=== PATIENT | female | born 1985 | race African-American/Black ===

== ENCOUNTER 2016-07-27 09:11 | Emergency (ER) | payer OTHER ==
[2016-07-27] MEDS ORDERED: Ibuprofen 600 MG TAB ONE (09:46)
[2016-07-27 10:09] LABS: #Lymphocytes 1.6 thou/uL (1.20-3.40); #Monocytes 0.4 thou/uL (0.11-0.59); #Neutrophils 4.4 thou/uL (1.40-6.50); %Basophils 0.7 % (0.0-1.0); %Eosinophils 0.3 % (0.0-10.0); %Lymphocytes 24.9 % (21.0-51.0); %Monocytes 6.5 % (0.0-10.0); %Neutrophils 67.7 % (42.0-75.0); Mean Corpuscular HGB CONC 32.3 g/dL (32.0-36.0); Mean Corpuscular Hemoglobin 29.7 pg (27.0-31.0); Mean Platelet Volume 7.9 fL (7.4-10.4); Platelet Count 259 thou/uL (130-400); RBC Distribution Width 13.3 % (11.5-14.5); White Blood Cell (WBC) Count 6.5 thou/uL (4.8-10.8)
[2016-07-27 10:27] LABS: ALT (SGPT) 8 U/L (0-55); AST (SGOT) 11 U/L (5-34); Albumin 4.1 g/dL (3.5-5.0); Alkaline Phosphatase 54 U/L (40-150); Anion Gap 12 mmol/L (10-20); BUN (Urea Nitrogen) 5 mg/dL (7.0-18.7); Bilirubin, Total 0.4 mg/dL (0.2-1.2); Calc. Creatinine Clearance 0 mL/min (70-130); Calcium 9.4 mg/dL (7.8-10.44); Carbon Dioxide 24 mmol/L (22-29); Chloride 107 mmol/L (98-107); Estimated GFR-MDRD Greater than 90; Globulin 2.7 g/dL (2.4-3.5); Glucose 89 mg/dL (70-105); Lipase 12 U/L (8-78); Potassium 4.4 mmol/L (3.5-5.1); Protein, Total 6.8 g/dL (6.0-8.3); Sodium 139 mmol/L (136-145)
[2016-07-27 10:30] LABS: CKMB 0.7 ng/mL (0-6.6); Troponin I Less than 0.010 ng/mL (< 0.028)
--- NOTE | 2016-07-27 10:42 | RAD ---
UPRIGHT PORTABLE CHEST 1 VIEW: HISTORY: A 31-year-old female with chest pain. COMPARISON: 12/15/15. FINDINGS: Heart size is normal. The lungs are clear. IMPRESSION: No acute intrathoracic disease. Stable from prior study. POS: [facility]
== END 2016-07-27 11:27 | disposition home or self-care (01) ==
LOC: MADERS 09:11
DX: R07.89 Other chest pain (principal)
CPT/HCPCS: 36415; 71010; 80053; 82553; 83690; 83880; 84484; 85025; 85379; 93005

== ENCOUNTER 2017-02-09 03:06 | Emergency (ER) | payer BC, OTHER ==
[2017-02-09] MEDS ORDERED: Mag-Al Plus 1200 MG/1200 MG/120 MG/30 ML UDCUP ONE (03:42)
[2017-02-09] MEDS ORDERED: Donnatal Elixir 16.2 MG/5 ML UDCUP ONE ×2 (03:42→06:46)
[2017-02-09] MEDS ORDERED: Lidocaine Viscous Sol 2% 15 ml UD Cup ONE (03:42)
[2017-02-09] MEDS ORDERED: Lorazepam 2 MG/ML VIAL ONE (03:44)
[2017-02-09] MEDS ORDERED: Aspirin 325 MG TAB ONE (03:44)
[2017-02-09] MEDS ORDERED: Ondansetron HCl/PF 4 MG/2 ML Vial ONE (03:45)
[2017-02-09] MEDS ORDERED: Ketorolac Tromethamine 30 MG/ML VIAL ONE (03:45)
[2017-02-09 04:30] LABS: #Basophils 0.1 thou/uL (0.0-0.2); #Lymphocytes 1.5 thou/uL (1.20-3.40); #Monocytes 0.5 thou/uL (0.11-0.59); #Neutrophils 4.2 thou/uL (1.40-6.50); %Eosinophils 0.4 % (0.0-10.0); %Lymphocytes 23.4 % (21.0-51.0); %Monocytes 8.1 % (0.0-10.0); %Neutrophils 67.1 % (42.0-75.0); Hemoglobin 12.1 g/dL (12.0-16.0); Mean Corpuscular HGB CONC 32.8 g/dL (32.0-36.0); Mean Corpuscular Hemoglobin 29.5 pg (27.0-31.0); Mean Corpuscular Volume 89.8 fl (81.0-99.0); Mean Platelet Volume 8.2 fL (7.4-10.4); Platelet Count 234 thou/uL (130-400); RBC Distribution Width 13.3 % (11.5-14.5); Red Blood Cell (RBC) Count 4.12 mill/uL (4.20-5.40); White Blood Cell (WBC) Count 6.3 thou/uL (4.8-10.8)
[2017-02-09 04:40] LABS: INR-International Normal Ratio 0.9; Prothrombin Time 12.5 SEC (12.0-14.7)
[2017-02-09 04:49] LABS: ALT (SGPT) 7 U/L (8-55); AST (SGOT) 13 U/L (5-34); Acetaminophen Less than 6.0 mcg/mL (10.0-30.0); Albumin 4.4 g/dL (3.5-5.0); Alcohol Less than 10 mg/dL (Less than 10); Alkaline Phosphatase 56 U/L (40-150); Anion Gap 15 mmol/L (10-20); BUN (Urea Nitrogen) 5 mg/dL (7.0-18.7); Bilirubin, Total 0.6 mg/dL (0.2-1.2); CK (CPK) 81 U/L (29-168); Calc. Creatinine Clearance 0 mL/min (70-130); Calcium 9.6 mg/dL (7.8-10.44); Carbon Dioxide 22 mmol/L (22-29); Chloride 108 mmol/L (98-107); Estimated GFR-MDRD Greater than 90; Globulin 3.4 g/dL (2.4-3.5); Glucose 90 mg/dL (70-105); Magnesium 2.3 mg/dL (1.6-2.6); PTT 25.8 SEC (22.9-36.1); Potassium 3.4 mmol/L (3.5-5.1); Protein, Total 7.8 g/dL (6.0-8.3); Salicylate Less than 8.0 mg/dL (15.0-30.0); Sodium 142 mmol/L (136-145)
[2017-02-09 04:56] LABS: CKMB 0.8 ng/mL (0-6.6); Troponin I Less than 0.010 ng/mL (< 0.028)
[2017-02-09 05:17] LABS: Amphetamine Not Detected (NotDetected); Barbiturates Screen Not Detected (NotDetected); Benzodiazepine Screen Not Detected (NotDetected); Cocaine Metabolite Screen Not Detected (NotDetected); Medtox Control Line Valid? VALID (VALID); Methadone Not Detected (NotDetected); Methamphetamine Not Detected (NotDetected); Opiate Screen Not Detected (NotDetected); Oxycodone Screen Not Detected (NotDetected); Phencyclidine (PCP) Not Detected (NotDetected); THC/Cannabinoid Screen Not Detected (NotDetected); Tricyclic Screen Not Detected (NotDetected)
--- NOTE | 2017-02-09 08:04 | RAD ---
CHEST ONE VIEW: HISTORY: Chest pain. Dyspnea. COMPARISON: 07/27/2016 FINDINGS: The cardiac silhouette is magnified by projection. The pulmonary vasculature is unremarkable. The mediastinum is midline. There is no confluent air space consolidation or evidence of pneumothorax. IMPRESSION: No active cardiopulmonary abnormalities are demonstrated.. POS: [facility]
== END 2017-02-09 06:07 | disposition home or self-care (01) ==
LOC: MADERS 03:06
DX: R07.89 Other chest pain (principal)
CPT/HCPCS: 71010; 80053; 80306; 80307; 82553; 83735; 83880; 84443; 84484; 85025; 85610; 85730; 87086; 93005; 94760; 96374; 96375; J1885; J2060; J2405

== ENCOUNTER 2017-04-11 00:40 | Emergency (ER) | payer BC ==
[2017-04-11] MEDS ORDERED: Ketorolac Tromethamine 30 MG/ML VIAL ONE ×2 (01:16→02:28)
[2017-04-11 02:21] LABS: #Basophils 0.1 thou/uL (0.0-0.2); #Monocytes 0.5 thou/uL (0.11-0.59); #Neutrophils 5.3 thou/uL (1.40-6.50); %Eosinophils 0.6 % (0.0-10.0); %Lymphocytes 25.7 % (21.0-51.0); %Neutrophils 66.7 % (42.0-75.0); Hemoglobin 12.6 g/dL (12.0-16.0); Mean Corpuscular HGB CONC 32.9 g/dL (32.0-36.0); Mean Corpuscular Hemoglobin 29.8 pg (27.0-31.0); Mean Corpuscular Volume 90.4 fl (81.0-99.0); Mean Platelet Volume 8.7 fL (7.4-10.4); Platelet Count 266 thou/uL (130-400); RBC Distribution Width 12.4 % (11.5-14.5); Red Blood Cell (RBC) Count 4.22 mill/uL (4.20-5.40); White Blood Cell (WBC) Count 7.9 thou/uL (4.8-10.8)
[2017-04-11 02:41] LABS: CKMB 1.3 ng/mL (0-6.6); Troponin I Less than 0.010 ng/mL (< 0.028)
[2017-04-11 02:42] LABS: ALT (SGPT) Less than 7 U/L (8-55); AST (SGOT) 14 U/L (5-34); Albumin 4.6 g/dL (3.5-5.0); Alkaline Phosphatase 59 U/L (40-150); Anion Gap 14 mmol/L (10-20); BUN (Urea Nitrogen) 8 mg/dL (7.0-18.7); Bilirubin, Total 0.2 mg/dL (0.2-1.2); Calc. Creatinine Clearance 0 mL/min (70-130); Calcium 9.6 mg/dL (7.8-10.44); Carbon Dioxide 21 mmol/L (22-29); Chloride 107 mmol/L (98-107); Estimated GFR-MDRD Greater than 90; Globulin 3.4 g/dL (2.4-3.5); Glucose 104 mg/dL (70-105); Lipase 23 U/L (8-78); Potassium 4.1 mmol/L (3.5-5.1); Sodium 138 mmol/L (136-145)
--- NOTE | 2017-04-11 08:13 | RAD ---
PA AND LATERAL VIEWS CHEST: HISTORY: Left-sided chest pain. FINDINGS: Comparison is made with the exam of 12/14/14. The heart size is normal. The lungs are expanded without focal areas of consolidation, pneumothorax, or pleural effusions. The bony structures are unremarkable. IMPRESSION: Normal exam. POS: [facility]
== END 2017-04-11 03:15 | disposition home or self-care (01) ==
LOC: MADERS 00:40
DX: K22.4 Dyskinesia of esophagus (principal); R07.89 Other chest pain
CPT/HCPCS: 36415; 71046; 80053; 82553; 83690; 84484; 85025; 93005; 96372; J1885

== ENCOUNTER 2017-10-02 10:24 | Emergency (ER) | payer BC ==
--- NOTE | 2017-10-02 11:21 | RAD ---
FOUR VIEWS LEFT ELBOW: Date: 10-02-17 History: Twisting motion to left elbow and shoulder. Limited range of motion. FINDINGS: There is no evidence of a fracture, dislocation, or other osseous abnormality involving the left elbo w. IMPRESSION: No acute osseous abnormality. POS: [facility]
--- NOTE | 2017-10-02 11:22 | RAD ---
THREE VIEWS LEFT SHOULDER: Date: 10-02-17 History: Limited range of motion. Twisting motion at left shoulder. FINDINGS: There is no evidence of fracture, dislocation, or other osseous abnormality involving the left should er. IMPRESSION: No acute osseous abnormality. POS: [facility]
[2017-10-02] MEDS ORDERED: Ketorolac Tromethamine 30 MG/ML VIAL ONE (11:45)
== END 2017-10-02 12:00 | disposition home or self-care (01) ==
LOC: MADERS 10:24
DX: S43.402A Unspecified sprain of left shoulder joint, initial encounter (principal); W22.8XXA Striking against or struck by other objects, initial encounter
CPT/HCPCS: 96372; J1885

== ENCOUNTER 2018-09-11 15:19 | Outpatient (CLI) | payer BC ==
--- NOTE | 2018-09-11 15:47 | RAD ---
Exam:3 views left shoulder HISTORY: Pain. Limited range of motion. Pain worsening the last 3 months. COMPARISON: 10/02/2017 FINDINGS: Glenohumeral joint space preserved. Acromioclavicular cortical clavicular distance is maint ained. No fracture or dislocation. IMPRESSION: Unremarkable 3 views left shoulder
== END 2018-09-11 15:20 | disposition home or self-care (01) ==
LOC: MADRAD 15:19
PROVIDERS: ATTEND Family Medicine
DX: M25.512 Pain in left shoulder (principal); G89.29 Other chronic pain

== ENCOUNTER 2019-06-07 10:16 | Emergency (ER) | payer BC ==
[2019-06-07] MEDS ORDERED: Prochlorperazine Maleate 5 MG TAB ONE (10:58)
[2019-06-07] MEDS ORDERED: Sodium Chloride 0.9% 1,000 ML ONE (10:58)
[2019-06-07 11:18] LABS: ALT (SGPT) 10 U/L (8-55); AST (SGOT) 13 U/L (5-34); Albumin 4.3 g/dL (3.5-5.0); Alkaline Phosphatase 62 U/L (40-110); Anion Gap 15 mmol/L (10-20); BUN (Urea Nitrogen) 13 mg/dL (7.0-18.7); Bilirubin, Total 0.3 mg/dL (0.2-1.2); Calc. Creatinine Clearance 0 mL/min (70-130); Calcium 9.7 mg/dL (7.8-10.44); Carbon Dioxide 26 mmol/L (22-29); Chloride 107 mmol/L (98-107); Estimated GFR-MDRD 86; Globulin 3.6 g/dL (2.4-3.5); Glucose 95 mg/dL (70-105); Potassium 3.3 mmol/L (3.5-5.1); Protein, Total 7.9 g/dL (6.0-8.3); Sodium 145 mmol/L (136-145)
[2019-06-07 11:20] LABS: Band 2 % (5-11); Hemoglobin 11.8 g/dL (12.0-16.0); Lymphocytes 10 % (21-51); MDiff Complete? YES; Mean Corpuscular Hemoglobin 27.6 pg (27.0-31.0); Mean Corpuscular Volume 88.9 fL (78.0-98.0); Mean Platelet Volume 8.6 fL (7.4-10.4); Monocytes 3 % (0-10); Neutrophil 84 % (42-75); Platelet Count 351 thou/uL (130-400); Platelet Morphology Comment Appears Adequate; RBC Distribution Width 12.6 % (11.5-14.5); Reactive Lymphocytes 1 % (0-10); Red Blood Cell (RBC) Count 4.28 mill/uL (4.20-5.40); White Blood Cell (WBC) Count 10.2 thou/uL (4.8-10.8)
== END 2019-06-07 11:45 | disposition home or self-care (01) ==
LOC: MADERS 10:16
DX: R42 Dizziness and giddiness (principal); R10.816 Epigastric abdominal tenderness
CPT/HCPCS: 36415; 80053; 85025; 96360; J7050; Q0164

== ENCOUNTER 2019-10-02 15:55 | Outpatient (CLI) | payer BC ==
--- NOTE | 2019-10-02 16:20 | RAD ---
EXAM: Chest PA and lateral: HISTORY: Exposure to COVID 19. COMPARISON: 04/11/2017 FINDINGS: Heart: Normal cardiac silhouette Aorta: Unremarkable Pulmonary vessels: Normal Costophrenic angles: Costophrenic angles are clear. Lungs: No consolidation or masses. Pneumothorax: No pneumothorax Osseous structures: No osseous abnormalities IMPRESSION: No acute cardiopulmonary process.
== END 2019-10-02 15:56 | disposition home or self-care (01) ==
LOC: MADRAD 15:55
PROVIDERS: ATTEND Family Medicine
DX: R06.00 Dyspnea, unspecified (principal); Z20.828 Contact with and (suspected) exposure to other viral communicable diseases
CPT/HCPCS: 71046; 87633

== ENCOUNTER 2021-10-14 18:05 | Emergency (ER) | payer BC ==
[2021-10-14 19:08] LABS: Hemoglobin 13.4 g/dL (12.0-16.0); Mean Corpuscular HGB CONC 32.4 g/dL (32.0-36.0); Mean Corpuscular Volume 86.4 fL (78.0-98.0); Mean Platelet Volume 10.3 fL (7.4-10.4); Platelet Count 300 thou/uL (130-400); RBC Distribution Width 12.7 % (11.5-14.5); White Blood Cell (WBC) Count 8.4 thou/uL (4.8-10.8)
[2021-10-14 19:15] LABS: Lymphocytes 19 % (21-51); Monocytes 4 % (0-10); Neutrophil 76 % (42-75); Platelet Morphology Comment Appears Adequate
[2021-10-14 19:17] LABS: MDiff Complete? YES; Manual Diff?? YES
[2021-10-14 19:21] LABS: ALT (SGPT) 13 U/L (8-55); AST (SGOT) 18 U/L (5-34); Albumin 4.7 g/dL (3.5-5.0); Alkaline Phosphatase 77 U/L (40-110); Anion Gap 17 mmol/L (10-20); BUN (Urea Nitrogen) 6 mg/dL (7.0-18.7); Bilirubin, Total 0.5 mg/dL (0.2-1.2); Calc. Creatinine Clearance 0 mL/min (70-130); Calcium 9.7 mg/dL (7.8-10.44); Carbon Dioxide 21 mmol/L (22-29); Chloride 108 mmol/L (98-107); Estimated GFR 97; Globulin 3.5 g/dL (2.4-3.5); Glucose 89 mg/dL (70-105); Lipase 19 U/L (8-78); Potassium 4.2 mmol/L (3.5-5.1); Protein, Total 8.2 g/dL (6.0-8.3); Sodium 142 mmol/L (136-145)
[2021-10-14] MEDS ORDERED: Sodium Chloride 0.9% 1,000 ML ONE (19:25)
[2021-10-14] MEDS ORDERED: Naproxen 500 MG TAB ONE (19:25)
[2021-10-14 20:25] LABS: Bilirubin Negative (Negative); Blood, Urine Negative (Negative); Clarity Clear (Clear); Glucose, Urine (Dipstick) Negative (Negative); Ketone, Urine Trace mg/dL (Negative); Leukocyte Negative (Negative); Nitrite Negative (Negative); Protein, Urine (Dipstick) Negative (Neg-Trace); Urobilinogen 0.2 mg/dL (Less than 2)
== END 2021-10-14 21:34 | disposition home or self-care (01) ==
LOC: MADERS 18:05
DX: R07.89 Other chest pain (principal); E86.9 Volume depletion, unspecified; R42 Dizziness and giddiness; R29.700 NIHSS score 0; I10 Essential (primary) hypertension
CPT/HCPCS: 71045; 80053; 81003; 83690; 84443; 84484; 85025; 96360; 96361; J7050

== ENCOUNTER 2022-06-06 09:08 | Outpatient (CLI) | payer BC | END 2022-06-06 09:09 | disposition home or self-care (01) | LOC: MADRAD 09:08 | PROVIDERS: ATTEND Family Medicine | DX: J20.9 Acute bronchitis, unspecified (principal) | CPT/HCPCS: 71046 ==

== ENCOUNTER 2023-02-18 10:40 | Outpatient (CLI) | payer BC | END 2023-02-18 10:41 | disposition home or self-care (01) | LOC: MADLAB 10:40 → MADRAD 10:41 | PROVIDERS: ATTEND Family Medicine | DX: M25.552 Pain in left hip (principal) ==

== ENCOUNTER 2023-03-29 20:10 | Emergency (ER) | payer BC ==
[2023-03-29] MEDS ORDERED: Aspirin 325 MG TAB ONE (20:26)
[2023-03-29 20:44] LABS: Hematocrit 39.1 % (36.0-47.0); Hemoglobin 12.7 g/dL (12.0-16.0); Mean Corpuscular HGB CONC 32.6 g/dL (32.0-36.0); Mean Corpuscular Hemoglobin 30.3 pg (27.0-31.0); Mean Corpuscular Volume 92.9 fl (78.0-98.0); Mean Platelet Volume 9.9 fL (7.4-10.4); Platelet Count 225 10x3/uL (130-400); RBC Distribution Width 12.4 % (11.5-14.5); Red Blood Cell (RBC) Count 4.21 mill/uL (4.20-5.40); White Blood Cell (WBC) Count 8.4 10x3/uL (4.8-10.8)
[2023-03-29 20:45] LABS: Lymphocytes 22 % (21-51); MDiff Complete? YES; Monocytes 6 % (0-10); Neutrophil 72 % (42-75)
[2023-03-29 20:49] LABS: PTT 25.5 sec (22.9-36.1)
[2023-03-29 20:53] LABS: BHCG - Serum Negative (NEGATIVE); Pregs Control Background? CLEAR/WHITE (CLR/WHITE); Pregs Control Bar Appear? YES (CONTROL BAR)
[2023-03-29 20:57] LABS: Anion Gap 14 mmol/L (10-20); BUN (Urea Nitrogen) 6 mg/dL (7.0-18.7); Calc. Creatinine Clearance 0 mL/min (70-130); Calcium 10.4 mg/dL (7.8-10.44); Carbon Dioxide 25 mmol/L (22-29); Chloride 105 mmol/L (98-107); Estimated GFR 96; Glucose 99 mg/dL (70-105); Potassium 3.7 mmol/L (3.5-5.1); Sodium 140 mmol/L (136-145)
[2023-03-29 20:59] LABS: Troponin I Less than 0.010 ng/mL (< 0.028)
== END 2023-03-29 21:13 | disposition home or self-care (01) ==
LOC: MADERS 20:10
DX: M94.0 Chondrocostal junction syndrome [Tietze] (principal); I49.9 Cardiac arrhythmia, unspecified; I10 Essential (primary) hypertension; Z79.899 Other long term (current) drug therapy
CPT/HCPCS: 36415; 71045; 80048; 83735; 83880; 84443; 84484; 84703; 85025; 85610; 85730; 93005

== ENCOUNTER 2023-08-25 09:49 | Emergency (ER) | payer BC ==
[2023-08-25 10:12] LABS: Bilirubin Small (Negative); Blood, Urine Trace (Negative); Glucose, Urine (Dipstick) Negative (Negative); Ketone, Urine 15 mg/dL (Negative); Leukocyte Negative (Negative); Nitrite Negative (Negative); Protein, Urine (Dipstick) 30 mg/dL (Neg-Trace); pH, Urine 5.5 (5.0-9.0)
[2023-08-25 10:18] LABS: Clarity Hazy (Clear); Specific Gravity, Urine 1.031 (1.002-1.036)
[2023-08-25 10:20] LABS: Bacteria/HPF 1+ HPF (None Seen); CAUTI Indications for Culture Dysuria,urgency,freq; Mucous/LPF 3+ LPF (<2+); RBC/HPF 0-3 HPF (0-3); WBC/HPF None Seen HPF (0-3)
[2023-08-25 10:21] LABS: Urine Culture Reflex No No
[2023-08-25] MEDS ORDERED: Ondansetron PF 4 MG/2 ML Vial ONE (10:48)
[2023-08-25] MEDS ORDERED: Sodium Chloride 0.9% 1,000 ML ONE (10:48)
[2023-08-25 11:10] LABS: Hematocrit 47.9 % (36.0-47.0); Lymphocytes 20 % (21-51); MDiff Complete? YES; Manual Diff?? YES; Mean Corpuscular HGB CONC 29.3 g/dL (32.0-36.0); Mean Corpuscular Volume 95.3 fl (78.0-98.0); Mean Platelet Volume 8.6 fL (7.4-10.4); Monocytes 3 % (0-10); Neutrophil 69 % (42-75); Platelet Count 251 10x3/uL (130-400); RBC Distribution Width 12.5 % (11.5-14.5); RBC Morph Comment Within Normal Limits; Reactive Lymphocytes 8 % (0-10); Red Blood Cell (RBC) Count 5.02 mill/uL (4.20-5.40); White Blood Cell (WBC) Count 5.1 10x3/uL (4.8-10.8)
[2023-08-25 11:11] LABS: Platelet Adequacy Comment Appears Adequate
[2023-08-25 11:20] LABS: ALT (SGPT) 13 U/L (8-55); AST (SGOT) 15 U/L (5-34); Albumin 4.7 g/dL (3.5-5.0); Alkaline Phosphatase 51 U/L (40-110); Anion Gap 16 mmol/L (10-20); BUN (Urea Nitrogen) 8 mg/dL (7.0-18.7); Bilirubin, Total 0.6 mg/dL (0.2-1.2); Calc. Creatinine Clearance 0 mL/min (70-130); Calcium 10.2 mg/dL (7.8-10.44); Carbon Dioxide 22 mmol/L (22-29); Chloride 109 mmol/L (98-107); Estimated GFR 95; Globulin 3.1 g/dL (2.4-3.5); Glucose 92 mg/dL (70-105); Magnesium 2.2 mg/dL (1.6-2.6); Potassium 3.6 mmol/L (3.5-5.1); Protein, Total 7.8 g/dL (6.0-8.3); Sodium 143 mmol/L (136-145)
== END 2023-08-25 11:39 | disposition home or self-care (01) ==
LOC: MADERS 09:49
DX: K52.9 Noninfective gastroenteritis and colitis, unspecified (principal); E86.0 Dehydration; I10 Essential (primary) hypertension
CPT/HCPCS: 80053; 81001; 83735; 85025; 96361; 96374; J2405; J7050

== ENCOUNTER 2024-04-17 15:10 | Emergency (ER) | payer BC ==
[2024-04-17] MEDS ORDERED: Ketorolac Tromethamine 30 MG (1 mL) VIAL ONE (15:27)
[2024-04-17] MEDS ORDERED: Metoclopramide HCl 10 MG (2 mL) VIAL ONE (15:27)
[2024-04-17] MEDS ORDERED: Ondansetron ODT 4 MG TAB ONE (16:10)
[2024-04-17 16:26] LABS: Hematocrit 38.6 % (36.0-47.0); Hemoglobin 12.3 g/dL (12.0-16.0); Mean Corpuscular HGB CONC 31.8 g/dL (32.0-36.0); Mean Corpuscular Hemoglobin 29.7 pg (27.0-31.0); Mean Corpuscular Volume 93.4 fl (78.0-98.0); Mean Platelet Volume 8.7 fL (7.4-10.4); Platelet Count 215 10x3/uL (130-400); RBC Distribution Width 12.6 % (11.5-14.5); Red Blood Cell (RBC) Count 4.13 mill/uL (4.20-5.40); White Blood Cell (WBC) Count 6.7 10x3/uL (4.8-10.8)
[2024-04-17 16:30] LABS: ALT (SGPT) 11 U/L (8-55); AST (SGOT) 14 U/L (5-34); Albumin 4.1 g/dL (3.5-5.0); Alkaline Phosphatase 55 U/L (40-110); Anion Gap 14 mmol/L (10-20); BUN (Urea Nitrogen) 5 mg/dL (7.0-18.7); Bilirubin, Total 0.4 mg/dL (0.2-1.2); Calc. Creatinine Clearance 0 mL/min (70-130); Calcium 9.5 mg/dL (7.8-10.44); Carbon Dioxide 21 mmol/L (22-29); Chloride 109 mmol/L (98-107); Estimated GFR 103; Globulin 2.9 g/dL (2.4-3.5); Glucose 87 mg/dL (70-105); Sodium 140 mmol/L (136-145)
[2024-04-17 16:32] LABS: Band 1 % (5-11); Lymphocytes 21 % (21-51); MDiff Complete? YES; Manual Diff?? YES; Monocytes 5 % (0-10); Neutrophil 66 % (42-75); Reactive Lymphocytes 6 % (0-10)
[2024-04-17 16:33] LABS: Eosinophils 1 % (0-10); Platelet Adequacy Comment Appears Adequate; RBC Morph Comment Within Normal Limits
[2024-04-17] MEDS ORDERED: Losartan 25 MG TAB ONE (16:35)
== END 2024-04-17 16:44 | disposition home or self-care (01) ==
LOC: MADERS 15:10
DX: R42 Dizziness and giddiness (principal); I10 Essential (primary) hypertension; R20.2 Paresthesia of skin; R51.9 Headache, unspecified; R11.0 Nausea
CPT/HCPCS: 36415; 80053; 85025; 96372; 99284; J1885; J2765; Q0162